=== PATIENT | female | born 1970 | race Caucasian/White ===

== ENCOUNTER 2016-10-27 06:26 | Day surgery (SDC) | payer OTHER ==
[~2016-10-27] VITALS: Ht 172.7 cm; Wt 63.0 kg
[~2016-10-27 06:26] MED LIST: ALLEGRA 180MG180 MG PO; ALLEGRA-D 24HOU1 T24 PO; CEPHALEXIN500 M1 PO; COD LIVER OIL1 CAP PO; NORCO 325 MG-7.1 TAB PO; ONE DAILY1 TA2 PO; PHENERGAN 25 TA25 MG PO; SUDAFED60 MG PO; SUPHEDRINE30 MG PO; TYLENOL W/COD1 UDTAB PO; VITAMIN C BUFF500 MG PO; WOMEN'S DAILY1 TAB PO; [UNRECOGNIZED DRUG - OTHER] PO
[2016-10-27 07:22] VITALS: BP 123/82; PULSE 68; TEMP 97.3
[2016-10-27 09:40] VITALS: BP 125/68; PULSE 82; TEMP 97.3
[2016-10-27 09:55] VITALS: BP 108/71; PULSE 73
[2016-10-27 10:10] VITALS: BP 112/67; PULSE 72
[2016-10-27 10:25] VITALS: BP 116/71; PULSE 64
[2016-10-27 10:55] VITALS: BP 119/73; PULSE 63
== END 2016-10-27 11:20 | disposition home or self-care (01) ==
LOC: SDCO 06:26
DX: M25.831 Other specified joint disorders, right wrist (principal); M25.531 Pain in right wrist
CPT/HCPCS: C1713; J0690; J2250; J2704; J3010; J7120

== ENCOUNTER 2016-11-30 08:00 | Outpatient (RCR) | payer OTHER | END 2016-12-22 | disposition home or self-care (01) | LOC: WSPT | DX: M25.512 Pain in left shoulder (principal) ==

== ENCOUNTER 2017-05-20 11:03 | Day surgery (SDC) | payer OTHER ==
[~2017-05-20] VITALS: Ht 172.7 cm; Wt 63.9 kg
[2017-05-20 11:47] VITALS: BP 143/67; PULSE 60; TEMP 97.7
[2017-05-20 14:00] VITALS: BP 105/64; PULSE 74; TEMP 97.4
[2017-05-20 14:15] VITALS: BP 104/70; PULSE 61
== END 2017-05-20 14:43 | disposition home or self-care (01) ==
LOC: SDCO 11:03
DX: T84.84XA Pain due to internal orthopedic prosthetic devices, implants and grafts, initial encounter (principal); G43.909 Migraine, unspecified, not intractable, without status migrainosus; G44.89 Other headache syndrome; Z83.3 Family history of diabetes mellitus; Z82.49 Family history of ischemic heart disease and other diseases of the circulatory system
CPT/HCPCS: J0690; J1100; J2250; J2405; J2704; J3010; J7120

== ENCOUNTER → 2017-07-28 | Outpatient (CLI) | payer OTHER | LOC: COL.LAB 08:17 | DX: Z79.899 Other long term (current) drug therapy (principal) ==

== ENCOUNTER 2017-08-11 10:58 | Day surgery (SDC) | payer OTHER ==
[~2017-08-11] VITALS: Ht 170.2 cm; Wt 62.6 kg
[2017-08-11] MEDS ORDERED: ALDACTONE 100M100 MG PO (11:32)
[2017-08-11 11:51] VITALS: BP 131/58; PULSE 64; TEMP 97.4
[2017-08-11 15:24] VITALS: BP 112/56; PULSE 77; TEMP 97.3
[2017-08-11 15:40] VITALS: BP 114/62; PULSE 61
[2017-08-11] MEDS ORDERED: CEPHALEXIN500 M1 PO (15:52)
[2017-08-11] MEDS ORDERED: PHENERGAN 25 TA25 MG PO (15:52)
[2017-08-11] MEDS ORDERED: TYLENOL W/COD1 UDTAB PO (15:53)
[2017-08-11 15:55] VITALS: BP 124/78; PULSE 65
[2017-08-11 16:10] VITALS: BP 135/65; PULSE 62
== END 2017-08-11 17:10 | disposition home or self-care (01) ==
LOC: SDCO 10:58
DX: M20.21 Hallux rigidus, right foot (principal); T84.84XA Pain due to internal orthopedic prosthetic devices, implants and grafts, initial encounter; Z88.1 Allergy status to other antibiotic agents; Z91.040 Latex allergy status; G43.909 Migraine, unspecified, not intractable, without status migrainosus
CPT/HCPCS: C1713; J0690; J2250; J2405; J2704; J3010; J7120

== ENCOUNTER → 2017-08-16 | Outpatient (CLI) | payer OTHER ==
[~2017-08-16] MED LIST changes: +ALDACTONE 100M100 MG PO
[2017-08-16 08:47] LABS: HEMATOCRIT 43.2 % (37.0-47.0); HEMOGLOBIN 14.3 g/dl (12.5-16.0); MEAN CELL VOLUME 89 fl (80.0-100.0); MEAN CORPUSCULAR HEMOGLOBIN 29 pg (27.0-31.0); MEAN CORPUSCULAR HGB CONC 33 g/dl (33.0-37.0); MEAN PLATELET VOLUME 9.4 fl (7.4-10.4); PLATELET COUNT 262 K/mm3 (130-400); RED BLOOD COUNT 4.87 M/mm3 (4.10-5.30); WHITE BLOOD COUNT 5.1 K/mm3 (4.8-10.8)
[2017-08-16 08:56] LABS: ADJUSTED CALCIUM 8.9 mg/dL (8.4-10.2); ALBUMIN 4.8 gm/dL (3.5-5.0); BILIRUBIN,TOTAL 1.1 mg/dL (0.0-1.0); CALCIUM 9.5 mg/dL (8.4-10.2); CHOLESTEROL RISK RATIO 3.3; CREATININE, serum 0.75 mg/dL (0.52-1.25); POTASSIUM 4.1 mmol/L (3.4-5.0); TOTAL PROTEIN 7.9 gm/dL (6.4-8.2)
== END ==
LOC: COL.LAB 08:05
PROVIDERS: Physician Assistant Medical
DX: Z13.6 Encounter for screening for cardiovascular disorders (principal)

== ENCOUNTER → 2017-09-08 | Outpatient (CLI) | payer OTHER | LOC: MC.RAD 10:26 | DX: Z12.31 Encounter for screening mammogram for malignant neoplasm of breast (principal) ==

== ENCOUNTER → 2018-10-02 | Outpatient (CLI) | payer OTHER | LOC: MC.RAD 07:28 | DX: Z12.31 Encounter for screening mammogram for malignant neoplasm of breast (principal) ==

== ENCOUNTER → 2019-03-12 | Outpatient (CLI) | payer OTHER | LOC: COL.RAD 07:58 | DX: M79.671 Pain in right foot (principal); Z98.1 Arthrodesis status ==

== ENCOUNTER 2019-04-11 11:29 | Day surgery (SDC) | payer OTHER ==
[~2019-04-11] VITALS: Ht 172.7 cm; Wt 67.2 kg
[2019-04-11 12:07] VITALS: BP 138/73; PULSE 63; TEMP 97.5
[2019-04-11] MEDS ORDERED: ALLEGRA-D 24HR1 T24 PO (12:35)
[2019-04-11] MEDS ORDERED: ALDACTONE50 MG PO ×2 (12:37→12:38)
[2019-04-11] MEDS ORDERED: ALDACTONE 25MG25 M1 PO (12:38)
[2019-04-11 14:23] VITALS: BP 122/73; PULSE 64
--- NOTE | 2019-04-11 14:23 | NUR ---
Patient returns to room 2 per cart from surgery and arouses to verbal stimuli. IV fluids infusing and denies pain or nausea. Able to wiggle toes and toes warm to touch on the right foot. Post op shoe is on and foot of cart is elevated. Spouse in room and call light in reach.
[2019-04-11 14:38] VITALS: BP 114/67; PULSE 70
--- NOTE | 2019-04-11 14:38 | NUR ---
Resting and denies pain or nausea. Spouse in room.
[2019-04-11 14:53] VITALS: BP 112/69; PULSE 63
--- NOTE | 2019-04-11 14:53 | NUR ---
Room air sats 97% and resting.
[2019-04-11] MEDS ORDERED: TYLENOL W/COD1 UDTAB PO (15:00)
[2019-04-11] MEDS ORDERED: PHENERGAN 25 TA25 MG PO (15:01)
[2019-04-11] MEDS ORDERED: CEPHALEXIN500 M1 PO (15:01)
[2019-04-11 15:08] VITALS: BP 102/59; PULSE 55
--- NOTE | 2019-04-11 15:08 | NUR ---
Taking ice chips and denies nausea.
[2019-04-11 15:23] VITALS: BP 117/73; PULSE 78
--- NOTE | 2019-04-11 15:23 | NUR ---
Eating toast and denies pain or nasuea.
--- NOTE | 2019-04-11 15:40 | NUR ---
Eating toast and drinking water.
--- NOTE | 2019-04-11 15:55 | NUR ---
Assisted up to the bathroom and is able to void. Ambulates with use of crutches. Denies pain or nausea.
--- NOTE | 2019-04-11 16:10 | NUR ---
Given dismissal instructions and voices understanding of home cares and follow up as scheduled. Scripts for Tyleonl #3, Keflex, and Phenergan called to [facility]. IV discontinued and patient dresses self.
--- NOTE | 2019-04-11 16:15 | NUR ---
Patient dismissed to home per private vehicle driven by spouse and assisted into vehicle by RN.
== END 2019-04-11 16:15 | disposition home or self-care (01) ==
LOC: SDCO 11:29
DX: Z47.2 Encounter for removal of internal fixation device (principal); Z98.1 Arthrodesis status; D64.9 Anemia, unspecified; G43.909 Migraine, unspecified, not intractable, without status migrainosus; J30.2 Other seasonal allergic rhinitis; Z91.048 Other nonmedicinal substance allergy status; Z91.040 Latex allergy status; Z88.8 Allergy status to other drugs, medicaments and biological substances; Z83.3 Family history of diabetes mellitus; Z82.49 Family history of ischemic heart disease and other diseases of the circulatory system; Z88.5 Allergy status to narcotic agent; Z88.1 Allergy status to other antibiotic agents
CPT/HCPCS: J2250; J2405; J2704; J2795; J7120

== ENCOUNTER 2019-05-11 05:27 | Day surgery (SDC) | payer OTHER ==
[~2019-05-11] VITALS: Ht 172.7 cm; Wt 66.3 kg
[~2019-05-11 05:27] MED LIST changes: +ALDACTONE 25MG25 M1 PO; +ALDACTONE50 MG PO; +ALLEGRA-D 24HR1 T24 PO
[2019-05-11] MEDS ORDERED: MINOCYCLIN100 MG/CAP PO (06:12)
[2019-05-11 06:14] VITALS: BP 132/77; PULSE 65; TEMP 97.8
[2019-05-11 07:23] VITALS: BP 117/74; PULSE 57
--- NOTE | 2019-05-11 07:23 | NUR ---
Patient returns to room 8 per cart from surgery and is awake and alert. States that the incisional area is burning. Foot of cart elevated and right leg up on two pilllows. Siderails up x2 and call light in reach. Temp 97.2 and room air sats 100%. IV fluids infusing and allowed to rest.
[2019-05-11 07:38] VITALS: BP 111/70; PULSE 52
--- NOTE | 2019-05-11 07:38 | NUR ---
Resting with foot of cart elevated and offers no further complaints. States her foot is feeling more numb from block placed pre-op. Post op shoe and dressing dry on the right foot.
[2019-05-11 07:53] VITALS: BP 108/62; PULSE 64
--- NOTE | 2019-05-11 07:53 | NUR ---
Resting without complaints of pain or nausea.
[2019-05-11 08:08] VITALS: BP 113/68; PULSE 63
--- NOTE | 2019-05-11 08:08 | NUR ---
Eating toast and drinking water. Foot of cart is elevated and ana lilia wrap dressing is dry.
--- NOTE | 2019-05-11 08:20 | NUR ---
IV discontinued and site is free of redness. Dresses self. Instructed to continue taking antibiotic. Patient states that she does have Tylenol #3 and Phenergan at home.
--- NOTE | 2019-05-11 08:32 | NUR ---
Dismissal instructions signed and ready for discharge.
--- NOTE | 2019-05-11 08:40 | NUR ---
Patient dismissed to home per private vehicle driven by friend and assisted into car by RN.
== END 2019-05-11 08:40 | disposition home or self-care (01) ==
LOC: SDCO 05:27
DX: T81.31XA Disruption of external operation (surgical) wound, not elsewhere classified, initial encounter (principal); G43.909 Migraine, unspecified, not intractable, without status migrainosus; Z79.899 Other long term (current) drug therapy; Z88.1 Allergy status to other antibiotic agents; Z91.040 Latex allergy status; Z91.048 Other nonmedicinal substance allergy status; Z83.3 Family history of diabetes mellitus; Z82.49 Family history of ischemic heart disease and other diseases of the circulatory system
CPT/HCPCS: J2250; J2704; J2795; J3010; J7120

== ENCOUNTER → 2019-06-22 | Outpatient (CLI) | payer OTHER ==
[~2019-06-22] MED LIST changes: +MINOCYCLIN100 MG/CAP PO
== END ==
LOC: COL.RAD 10:48
DX: M25.474 Effusion, right foot (principal); Z98.1 Arthrodesis status

== ENCOUNTER 2019-08-13 05:21 | Day surgery (SDC) | payer OTHER ==
[~2019-08-13] VITALS: Ht 172.7 cm; Wt 67.2 kg
[2019-08-13] VITALS (8 sets, daily range): BP systolic 112–148; BP diastolic 58–75; PULSE 45–70; TEMP 97.6–97.9
[2019-08-13] MEDS ORDERED: CEPHALEXIN500 M1 PO (06:33)
--- NOTE | 2019-08-13 06:36 | NUR ---
TO RM AT 0540- CALL LIGHT IN REACH NO ONE WITH PATIENT AT THIS TIME.
--- NOTE | 2019-08-13 09:05 | NUR ---
TO RM 8 PER CART FROM PACU. SHIVERING AND C/O BEING COLD. RECEIVED NEW WARM BLANKETS. ANSWERS QUESTIOS AND FALLS BACK TO SLEEP. OPERATIVE FOOT ELEVATED AND ICED. RESPIRATIONS EVEN AND NONLABORED. AT BEDSIDE.
--- NOTE | 2019-08-13 09:20 | NUR ---
CONTINUES TO SHIVER AND CHANGED OUT COOLER BLANKETS FOR WARMER BLANKETS.
--- NOTE | 2019-08-13 09:35 | NUR ---
SLEEPING QUIETLY AND NO SHIVERING.
--- NOTE | 2019-08-13 09:50 | NUR ---
CONTINUES TO SLEEP QUIETLY.
--- NOTE | 2019-08-13 10:20 | NUR ---
AWAKE AND AMBULATED TO BATHROOM WITH CRUTCHES.
--- NOTE | 2019-08-13 10:55 | NUR ---
DRINKING WATER AND ATE 100% OF A CUP OF APPLE SAUCE.
--- NOTE | 2019-08-13 11:00 | NUR ---
RECEIVED DISCHARGE INSTRUCTIONS AND VERBALIZED UNDERSTANDING. DISCONTINUED IV AND INT- CATHETER INTACT.
--- NOTE | 2019-08-13 11:11 | NUR ---
DISCHARGED PER WC BY NURSING STAFF TO PRIVATE CAR IN CARE OF - ELIAS.
== END 2019-08-13 11:30 | disposition home or self-care (01) ==
LOC: SDCO 05:21
DX: G89.18 Other acute postprocedural pain (principal); G43.909 Migraine, unspecified, not intractable, without status migrainosus; J30.2 Other seasonal allergic rhinitis; Z91.040 Latex allergy status; Z88.8 Allergy status to other drugs, medicaments and biological substances; Z91.048 Other nonmedicinal substance allergy status; Z88.1 Allergy status to other antibiotic agents; Z83.3 Family history of diabetes mellitus; Z82.49 Family history of ischemic heart disease and other diseases of the circulatory system; Z88.5 Allergy status to narcotic agent
CPT/HCPCS: J2250; J2704; J2795; J7120

== ENCOUNTER 2019-10-09 10:57 | Outpatient (RCR) | payer OTHER | END 2020-01-07 | disposition home or self-care (01) | LOC: WSPT | DX: M25.512 Pain in left shoulder (principal) ==

== ENCOUNTER → 2020-01-15 | Outpatient (CLI) | payer OTHER | LOC: COL.RAD 07:54 | DX: M79.671 Pain in right foot (principal); Z87.312 Personal history of (healed) stress fracture; Z98.1 Arthrodesis status ==

== ENCOUNTER → 2020-02-19 | Outpatient (CLI) | payer OTHER | LOC: MC.RAD 17:13 | DX: Z12.31 Encounter for screening mammogram for malignant neoplasm of breast (principal); Z98.82 Breast implant status; N63.10 Unspecified lump in the right breast, unspecified quadrant ==

== ENCOUNTER → 2020-02-28 | Outpatient (CLI) | payer OTHER | LOC: MC.RAD 10:07 | DX: Z12.31 Encounter for screening mammogram for malignant neoplasm of breast (principal); N60.11 Diffuse cystic mastopathy of right breast ==

== ENCOUNTER 2020-03-31 07:53 | Day surgery (SDC) | payer OTHER ==
[~2020-03-31] VITALS: Ht 172.7 cm; Wt 63.5 kg
[2020-03-31 08:15] VITALS: BP 122/87; PULSE 63; TEMP 98.3
[2020-03-31 10:05] VITALS: BP 129/74; PULSE 63; TEMP 97.4
--- NOTE | 2020-03-31 10:05 | NUR ---
Patient arrives to [facility] bay 3 via cart, accompanied by Endo RN Claribel. She tolerated the procedure well. She is alert. She ambulates with steady gait to the chair in her room. Monitoring is applied - VSS on room air. She denies pain or nausea. She is offered and receives juice and toast to eat. Dr. Dinh comes to the bedside and talks with the patient.
[2020-03-31 10:20] VITALS: BP 108/65; PULSE 71
[2020-03-31 10:35] VITALS: BP 106/63; PULSE 53
--- NOTE | 2020-03-31 10:35 | NUR ---
Patient has ate/drank her toast and juice. She denies pain, nausea, or need.
--- NOTE | 2020-03-31 10:50 | NUR ---
Patient has met discharge criteria. Discharge instructions are discussed. She denies any questions and verbalizes understanding. PIV is removed with catheter intact and hemostasis achieved. She changes to her clothing independently. She is transported to the exit via wheelchair by staff. She is discharged to home with ride in private vehicle at 1050.
== END 2020-03-31 10:50 | disposition home or self-care (01) ==
LOC: SDCO 07:53
DX: Z12.11 Encounter for screening for malignant neoplasm of colon (principal); D12.2 Benign neoplasm of ascending colon; K64.0 First degree hemorrhoids; K63.89 Other specified diseases of intestine; Z88.1 Allergy status to other antibiotic agents
CPT/HCPCS: J2250; J2405; J3010; J7030